=== PATIENT | female | born 1990 | race Caucasian/White ===

== ENCOUNTER 2016-09-22 19:50 | Emergency (ER) | payer MEDICAID, OTHER ==
[2016-09-22 20:14] VITALS: BP 114/75; PULSE 77; RESP 16; TEMP 98.6
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
== END 2016-09-22 20:33 | disposition home or self-care (01) ==
LOC: EC 19:50
DX: S30.0XXA Contusion of lower back and pelvis, initial encounter (principal); Y04.0XXA Assault by unarmed brawl or fight, initial encounter; Y99.0 Civilian activity done for income or pay
CPT/HCPCS: 99283

== ENCOUNTER → 2016-11-13 | Outpatient (CLI) | payer BC ==
[2016-11-13 13:31] LABS: Cholesterol 178 mg/dL (<200); HDL Cholesterol 46 mg/dL (40-60); Triglycerides 62 mg/dL (<150)
== END ==
LOC: LABWHC1 12:34
PROVIDERS: ATTEND Nurse Practitioner Family
DX: Z13.220 Encounter for screening for lipoid disorders (principal)
CPT/HCPCS: 36415; 80061; 86480

== ENCOUNTER 2016-12-07 07:42 | Emergency (ER) | payer BC ==
[2016-12-07 07:54] VITALS: PULSE 99
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
--- NOTE | 2016-12-07 08:40 | XR ---
EXAMINATION TYPE: XR tibia fibula RT DATE OF EXAM: 12/07/2016 COMPARISON: NONE HISTORY: Pain TECHNIQUE: Two views are submitted. FINDINGS: There is a linear lucency through the posterior cortex of the mid diaphysis of the fibula. Correlate with point tenderness. The joint spaces are preserved. Sclerotic density proximal tibia likely relat ed to bone island. IMPRESSION: 1. Findings suspicious for hairline nondisplaced fracture mid diaphysis fibula correlate with point t enderness.
[2016-12-07 08:59] VITALS: BP 128/75; RESP 18; TEMP 98.6
== END 2016-12-07 08:56 | disposition home or self-care (01) ==
LOC: SUPCPDRO 07:42 → EC 07:42
DX: S82.401A Unspecified fracture of shaft of right fibula, initial encounter for closed fracture (principal); W09.1XXA Fall from playground swing, initial encounter; Y92.89 Other specified places as the place of occurrence of the external cause; Y93.89 Activity, other specified
CPT/HCPCS: 29515; 99283